=== PATIENT | female | born 2005 | race Caucasian/White ===

== ENCOUNTER 2024-01-08 14:28 | Emergency (ER) | payer OTHER ==
[~2024-01-08] VITALS: Ht 157.5 cm; Wt 56.7 kg
[2024-01-08 14:40] VITALS: BP_SYST 129; PULSE 71; RESP 18; TEMP 98.3; O2SAT 99
[2024-01-08] MEDS: IBUPROFEN 600 MG TABLET PO ONE (15:38)
[2024-01-08] MEDS ORDERED: IBUP-1969 PO (17:00)
[2024-01-08] MEDS ORDERED: LIDO1ADH22 TP (17:00)
== END 2024-01-08 17:30 | disposition home or self-care (01) ==
LOC: SED 14:28
DX: S46.812A Strain of other muscles, fascia and tendons at shoulder and upper arm level, left arm, initial encounter (principal); S16.1XXA Strain of muscle, fascia and tendon at neck level, initial encounter; V89.2XXA Person injured in unspecified motor-vehicle accident, traffic, initial encounter; Y93.89 Activity, other specified; Y92.89 Other specified places as the place of occurrence of the external cause; Y99.8 Other external cause status
CPT/HCPCS: 72040; 73030; 81025; 99284